=== PATIENT | male | born 1990 | race African-American/Black ===

== ENCOUNTER 2020-01-29 09:17 | Inpatient (IN) | payer MEDICAID, OTHER ==
[2020-01-28 20:32] VITALS: BP 129/69
[~2020-01-29] VITALS: Ht 177.8 cm; Wt 54.7 kg
[2020-01-29 10:56] LABS: Basophils # (auto) 0 10 ^3/uL (0-0.2); Basophils % (auto) 0.5 % (0.0-2.0); Eosinophils # (auto) 0 10 ^3/uL (0-0.8); Eosinophils % (auto) 0.1 % (0.0-7.0); Hematocrit 41.3 % (41.0-53.0); Hemoglobin 13.6 g/dL (13.5-17.5); Lymphocytes # (auto) 0.7 10 ^3/uL (0.4-5.4); Lymphocytes % (auto) 8.2 % (10.0-50.0); Mean Corpuscular Hemoglobin 32.5 pg (28.0-32.0); Mean Corpuscular Volume 98.5 fL (80.0-100.0); Monocytes # (auto) 0.8 10 ^3/uL (0-1.3); Monocytes % (auto) 8.9 % (0.0-12.0); Neutrophils # (auto) 7.2 10 ^3/uL (1.6-8.6); Neutrophils % (auto) 82.3 % (37.0-80.0); Nucleated Red Blood Cells % 0.1 %; Platelet Count (auto) 253 10^3/uL (140-450); Red Blood Cells 4.19 10^6/uL (4.5-5.90); Red Cell Distribution Width 14.1 % (11.8-14.3); White Blood Cell 8.7 10^3/uL (4.4-10.8)
[2020-01-29 11:14] LABS: Albumin 4.2 g/dL (3.4-5.0); Anion Gap 18 (5-15); Blood Urea Nitrogen 16 mg/dL (7-18); Calcium 10.3 mg/dL (8.5-10.1); Carbon Dioxide 18 mmol/L (21-32); Chloride 95 mmol/L (98-107); Glucose 105 mg/dL (74-106); Potassium 3.5 mmol/L (3.5-5.1); Sodium 131 mmol/L (136-145)
[2020-01-29 11:14] LABS: Amphetamine Screen, Urine POSITIVE (NEGATIVE); Barbiturate Scree,Urine NEGATIVE (NEGATIVE); Benzodiazephine Screen, Urine NEGATIVE (NEGATIVE); Cannabinoid Screen, Urine NEGATIVE (NEGATIVE); Cocaine Screen, Urine NEGATIVE (NEGATIVE); Opiate Scree,Urine NEGATIVE (NEGATIVE); Phencyclidine Screen, Urine POSITIVE (NEGATIVE)
[2020-01-29 11:15] LABS: Urine Bacteria NONE SEEN /hpf (None Seen); Urine Blood TRACE /uL (Negative); Urine Specific Gravity 1.025 (1.001-1.035); Urine WBC 2 /hpf (0 - 3)
[2020-01-29 11:21] LABS: Alanine Aminotransferase 36 U/L (16-61); Alkaline Phosphatase 126 U/L (45-117); Aspartate Aminotransferase 71 U/L (15-37); Bilirubin, Total 0.8 mg/dL (0.2-1.0); GFR African American 132 mL/min; GFR Non-African American 109 mL/min; Total Protein 9.1 g/dL (6.4-8.2)
[2020-01-29 11:29] LABS: INR 0.98 (0.9-1.15); Partial Thromboplastin Time 26.5 sec (23.0-31.2)
[2020-01-29] MEDS ORDERED: LORazepam 2MG/ML-1ML VIAL IM ONE ×2 (11:45→15:30)
[2020-01-29] MEDS ORDERED: ONDANSETRON ODT 4 MG TAB PO ONE (12:00)
[2020-01-29 12:29] LABS: Salicylate 3.3 mg/dL (2.8-20.0)
[2020-01-29 12:31] LABS: Acetaminophen < 2.0 ug/mL (10-30)
[2020-01-29] MEDS ORDERED: FOLIC ACID 1 MG, MULTIPLE VITAMIN 10 ML, MAGNESIUM SULF SDV 50% 8 MEQ, THIAMINE INJ 100... INJ STA ×5 (14:44)
[2020-01-29] MEDS ORDERED: THIAMINE HCL 100 MG TAB PO ONE (14:45)
[2020-01-29] MEDS ORDERED: SODIUM CHLORIDE 0.9% 1,000 ML IVB ONE (14:45)
[2020-01-29] MEDS ORDERED: HALOPERIDOL LACTATE 5 MG/ML INJ VIAL ONE (15:24)
[2020-01-29] MEDS ORDERED: LORazepam 2MG/ML-1ML VIAL ONE (15:25)
[2020-01-29] MEDS ORDERED: diphenhdrAMINE HCL 50 MG/1 ML VL ONE (15:27)
[2020-01-29] MEDS ORDERED: HALOPERIDOL LACTATE 5 MG/ML INJ VIAL IM ONE (15:30)
[2020-01-29] MEDS ORDERED: diphenhdrAMINE HCL 50 MG/1 ML VL IM ONE (15:30)
[2020-01-29] MEDS ORDERED: HALOPERIDOL LACTATE 5 MG/ML INJ VIAL IM PRN (16:30)
[2020-01-29] MEDS ORDERED: SODIUM CHLORIDE 0.9% 1,000 ML IV ONE (16:30)
[2020-01-29] MEDS ORDERED: LORazepam 2MG/ML-1ML VIAL IV PRN (16:30)
[2020-01-30 05:03] VITALS: BP 125/74
[2020-01-30 08:29] LABS: Basophils # (auto) 0 10 ^3/uL (0-0.2); Basophils % (auto) 0.7 % (0.0-2.0); Eosinophils # (auto) 0 10 ^3/uL (0-0.8); Eosinophils % (auto) 0.5 % (0.0-7.0); Hematocrit 38.1 % (41.0-53.0); Lymphocytes # (auto) 0.9 10 ^3/uL (0.4-5.4); Lymphocytes % (auto) 22.5 % (10.0-50.0); Mean Corpuscular Hemoglobin 33.4 pg (28.0-32.0); Mean Corpuscular Hgb Conc. 34.1 g/dL (32.0-36.0); Monocytes # (auto) 0.6 10 ^3/uL (0-1.3); Neutrophils # (auto) 2.6 10 ^3/uL (1.6-8.6); Neutrophils % (auto) 62.3 % (37.0-80.0); Nucleated Red Blood Cells % 0.2 %; Platelet Count (auto) 198 10^3/uL (140-450); Red Blood Cells 3.89 10^6/uL (4.5-5.90); Red Cell Distribution Width 14.6 % (11.8-14.3); White Blood Cell 4.2 10^3/uL (4.4-10.8)
[2020-01-30 08:59] LABS: BUN/Creatinine Ratio 16.2; Calcium 9.1 mg/dL (8.5-10.1); Potassium 3.4 mmol/L (3.5-5.1)
[2020-01-30 09:00] VITALS: BP 125/74
[2020-01-30] MEDS: PANTOPRAZOLE 40 MG/10 ML VIAL INJ IV SCH (09:57)
[2020-01-30] MEDS ORDERED: POTASSIUM CHL 20 Meq TABLET PO ONE (10:00)
[2020-01-30] MEDS: FOLIC ACID 1 MG, MULTIPLE VITAMIN 10 ML, MAGNESIUM SULF SDV 50% 8 MEQ, THIAMINE INJ 100... INJ SCH ×5 (13:08)
[2020-01-30 22:00] VITALS: BP 126/72
[2020-01-30] MEDS ORDERED: HYDROcodone-ACET 5/325MG TAB PO ONE (22:30)
[2020-01-31 05:04] VITALS: BP 119/60
[2020-01-31 10:00] LABS: Albumin 3.1 g/dL (3.4-5.0); Potassium 3.8 mmol/L (3.5-5.1)
[2020-01-31 10:01] LABS: BUN/Creatinine Ratio 22.1; Bilirubin, Total 0.3 mg/dL (0.2-1.0); Total Protein 6.6 g/dL (6.4-8.2)
[2020-01-31] MEDS: PANTOPRAZOLE 40 MG/10 ML VIAL INJ IV SCH (10:40)
[2020-01-31] MEDS: FOLIC ACID 1 MG, MULTIPLE VITAMIN 10 ML, MAGNESIUM SULF SDV 50% 8 MEQ, THIAMINE INJ 100... INJ SCH ×5 (13:47)
[2020-01-31 17:00] VITALS: BP 143/86
[2020-01-31 22:00] VITALS: BP 128/72
[2020-02-01 05:00] VITALS: BP 121/70
[2020-02-01 09:00] VITALS: BP 124/73
[2020-02-01] MEDS: PANTOPRAZOLE 40 MG/10 ML VIAL INJ IV SCH (10:03)
[2020-02-01] MEDS: FOLIC ACID 1 MG, MULTIPLE VITAMIN 10 ML, MAGNESIUM SULF SDV 50% 8 MEQ, THIAMINE INJ 100... INJ SCH ×5 (12:00)
[2020-02-01 12:51] VITALS: BP 115/64
== END 2020-02-01 14:00 | disposition left against medical advice (07) | DRG 812 ==
LOC: ER 09:17 → EDBD 09:17 → TELE 09:18 → OBSVTOIN 09:18 → TELE 20:07 → TELE-WESTW 20:14 → TELE 01-30 13:34 → TELE-WESTW 01-30 13:35
PROVIDERS: ADMIT Nurse Practitioner Acute Care; ATTEND Internal Medicine
DX: T50.991A Poisoning by other drugs, medicaments and biological substances, accidental (unintentional), initial encounter (principal); G92 Toxic encephalopathy; R45.851 Suicidal ideations; E87.1 Hypo-osmolality and hyponatremia; E87.2 Acidosis; F41.9 Anxiety disorder, unspecified; Z53.29 Procedure and treatment not carried out because of patient's decision for other reasons; F17.210 Nicotine dependence, cigarettes, uncomplicated; F15.129 Other stimulant abuse with intoxication, unspecified; F31.9 Bipolar disorder, unspecified; F20.9 Schizophrenia, unspecified; Z82.49 Family history of ischemic heart disease and other diseases of the circulatory system; Y92.89 Other specified places as the place of occurrence of the external cause; Z79.899 Other long term (current) drug therapy; F29 Unspecified psychosis not due to a substance or known physiological condition; F39 Unspecified mood [affective] disorder; F10.231 Alcohol dependence with withdrawal delirium
CPT/HCPCS: 36415; 70450; 71045; 80048; 80053; 80307; 80329; 81001; 83735; 84443; 84484; 85025; 85379; 85610; 85730; 96372; C9113; G0378; Q0162

== ENCOUNTER 2021-11-13 20:22 | Emergency (ER) | payer MEDICAID ==
[~2021-11-13] VITALS: Ht 172.7 cm; Wt 54.5 kg
[2021-11-13 23:18] LABS: Basophils # (auto) 0 10 ^3/uL (0-0.2); Basophils % (auto) 0.3 % (0.0-2.0); Eosinophils # (auto) 0 10 ^3/uL (0-0.8); Eosinophils % (auto) 0.1 % (0.0-7.0); Hematocrit 39.2 % (41.0-53.0); Hemoglobin 12.8 g/dL (13.5-17.5); Lymphocytes # (auto) 1.3 10 ^3/uL (0.4-5.4); Lymphocytes % (auto) 21.3 % (10.0-50.0); Mean Corpuscular Hemoglobin 30.7 pg (28.0-32.0); Mean Corpuscular Hgb Conc. 32.7 g/dL (32.0-36.0); Mean Corpuscular Volume 93.8 fL (80.0-100.0); Monocytes # (auto) 0.7 10 ^3/uL (0-1.3); Monocytes % (auto) 11.4 % (0.0-12.0); Neutrophils % (auto) 66.9 % (37.0-80.0); Nucleated Red Blood Cells % 0.2 %; Red Blood Cells 4.18 10^6/uL (4.5-5.90); Red Cell Distribution Width 13.8 % (11.8-14.3); White Blood Cell 6.1 10^3/uL (4.4-10.8)
[2021-11-13 23:37] LABS: Albumin 3.7 g/dL (3.4-5.0); Calcium 8.7 mg/dL (8.5-10.1); Potassium 3.7 mmol/L (3.5-5.1)
[2021-11-13 23:40] LABS: Total Protein 8.9 g/dL (6.4-8.2)
[2021-11-14] MEDS ORDERED: OXYCODONE W/ ACETAMINOPHEN 5/325MG TABLET PO ONE (02:45)
[2021-11-14 03:40] VITALS: BP 130/84
== END 2021-11-14 03:47 | disposition home or self-care (01) ==
LOC: ER 20:22 → EDBD 20:22 → ER 11-14 03:47
DX: R07.9 Chest pain, unspecified (principal); F17.210 Nicotine dependence, cigarettes, uncomplicated
CPT/HCPCS: 36415; 71045; 80053; 84484; 85025; 93005

== ENCOUNTER 2022-02-01 22:49 | Emergency (ER) | payer MEDICAID ==
[~2022-02-01] VITALS: Ht 167.6 cm; Wt 55.0 kg
[2022-02-02 00:53] LABS: Basophils # (auto) 0.1 10 ^3/uL (0-0.2); Basophils % (auto) 1.5 % (0.0-2.0); Eosinophils # (auto) 0.1 10 ^3/uL (0-0.8); Eosinophils % (auto) 1.3 % (0.0-7.0); Hematocrit 36.7 % (41.0-53.0); Hemoglobin 12.3 g/dL (13.5-17.5); Lymphocytes # (auto) 1.3 10 ^3/uL (0.4-5.4); Lymphocytes % (auto) 22.9 % (10.0-50.0); Mean Corpuscular Hemoglobin 31.8 pg (28.0-32.0); Mean Corpuscular Hgb Conc. 33.6 g/dL (32.0-36.0); Mean Corpuscular Volume 94.5 fL (80.0-100.0); Monocytes # (auto) 0.6 10 ^3/uL (0-1.3); Monocytes % (auto) 10.1 % (0.0-12.0); Neutrophils # (auto) 3.5 10 ^3/uL (1.6-8.6); Neutrophils % (auto) 64.2 % (37.0-80.0); Nucleated Red Blood Cells % 0.1 %; Red Blood Cells 3.89 10^6/uL (4.5-5.90); Red Cell Distribution Width 13.6 % (11.8-14.3); White Blood Cell 5.5 10^3/uL (4.4-10.8)
[2022-02-02 01:12] LABS: Albumin 3.6 g/dL (3.4-5.0); Anion Gap 9 (5-15); BUN/Creatinine Ratio 7.1; Blood Alcohol < 3.0 mg/dL (0-5); Blood Urea Nitrogen 7 mg/dL (7-18); Calcium 8.7 mg/dL (8.5-10.1); Carbon Dioxide 26 mmol/L (21-32); Chloride 103 mmol/L (98-107); GFR African American 115 mL/min; GFR Non-African American 95 mL/min; Glucose 147 mg/dL (74-106); Potassium 3.3 mmol/L (3.5-5.1); Sodium 138 mmol/L (136-145)
[2022-02-02 01:15] LABS: Alanine Aminotransferase 52 U/L (16-61); Alkaline Phosphatase 94 U/L (45-117); Aspartate Aminotransferase 104 U/L (15-37); Bilirubin, Total 0.3 mg/dL (0.2-1.0); Total Protein 8.2 g/dL (6.4-8.2)
[2022-02-02 01:16] LABS: Salicylate < 1.7 mg/dL (2.8-20.0)
[2022-02-02 01:26] LABS: Acetaminophen < 2.0 ug/mL (10-30)
[2022-02-02] MEDS ORDERED: LORazepam 2MG/ML-1ML VIAL IM ONE (02:45)
[2022-02-02 10:15] LABS: Urine Bacteria NONE SEEN /hpf (None Seen); Urine Blood Negative /uL (Negative); Urine Mucus FEW (None Seen); Urine Specific Gravity 1.025 (1.001-1.035); Urine WBC 11 /hpf (0 - 3)
[2022-02-02 10:29] LABS: Amphetamine Screen, Urine POSITIVE (NEGATIVE); Barbiturate Scree,Urine NEGATIVE (NEGATIVE); Benzodiazephine Screen, Urine NEGATIVE (NEGATIVE); Cannabinoid Screen, Urine NEGATIVE (NEGATIVE); Cocaine Screen, Urine NEGATIVE (NEGATIVE); Opiate Scree,Urine NEGATIVE (NEGATIVE); Phencyclidine Screen, Urine POSITIVE (NEGATIVE)
[2022-02-02] MEDS ORDERED: KETOROLAC TROMETH 60MG/2ML VIAL IM ONE (20:45)
[2022-02-02] MEDS: QUEtiapine FUMARATE 100 MG TAB PO SCH (22:20)
[2022-02-03] MEDS ORDERED: KETOROLAC TROMETH 60MG/2ML VIAL IM ONE (03:30)
[2022-02-03] MEDS ORDERED: ACETAMINOPHEN 500 MG TAB PO ONE ×2 (08:30→20:00)
[2022-02-03] MEDS: QUEtiapine FUMARATE 100 MG TAB PO SCH ×2 (10:25→22:35)
[2022-02-04] MEDS: QUEtiapine FUMARATE 100 MG TAB PO SCH (10:16)
[2022-02-04 10:38] VITALS: BP 155/103
[2022-02-04] MEDS ORDERED: QUET100T38 PO (12:05)
== END 2022-02-04 12:51 | disposition home or self-care (01) ==
LOC: EDBD 22:49 → ER 23:03
DX: R45.851 Suicidal ideations (principal); F31.9 Bipolar disorder, unspecified; F20.9 Schizophrenia, unspecified; F17.210 Nicotine dependence, cigarettes, uncomplicated; F12.10 Cannabis abuse, uncomplicated; F15.10 Other stimulant abuse, uncomplicated
CPT/HCPCS: 36415; 80053; 80307; 80320; 80329; 81001; 85025; 96372; 99285; J1885; J2060

== ENCOUNTER 2022-10-09 19:33 | Inpatient (IN) | payer MEDICAID ==
[~2022-10-09] VITALS: Ht 172.7 cm; Wt 70.0 kg
[~2022-10-09 19:33] MED LIST: QUET100T38 PO
[2022-10-09] MEDS ORDERED: LORazepam 2MG/ML-1ML VIAL IV ONE (21:30)
[2022-10-09 21:48] LABS: Basophils # (auto) 0.1 10 ^3/uL (0-0.2); Basophils % (auto) 1.4 % (0.0-2.0); Eosinophils # (auto) 0 10 ^3/uL (0-0.8); Hematocrit 37.1 % (41.0-53.0); Hemoglobin 12.1 g/dL (13.5-17.5); Lymphocytes # (auto) 1.5 10 ^3/uL (0.4-5.4); Lymphocytes % (auto) 26.1 % (10.0-50.0); Mean Corpuscular Hgb Conc. 32.6 g/dL (32.0-36.0); Mean Corpuscular Volume 95.3 fL (80.0-100.0); Monocytes # (auto) 0.2 10 ^3/uL (0-1.3); Monocytes % (auto) 3.6 % (0.0-12.0); Neutrophils # (auto) 4.1 10 ^3/uL (1.6-8.6); Neutrophils % (auto) 68.9 % (37.0-80.0); Nucleated Red Blood Cells % 0.2 %; Red Blood Cells 3.89 10^6/uL (4.5-5.90); Red Cell Distribution Width 15.5 % (11.8-14.3); White Blood Cell 5.9 10^3/uL (4.4-10.8)
[2022-10-09 22:10] LABS: Calcium 9.1 mg/dL (8.5-10.1); Potassium 3.9 mmol/L (3.5-5.1)
[2022-10-09 22:16] LABS: Albumin 4.1 g/dL (3.4-5.0); Bilirubin, Total 0.4 mg/dL (0.2-1.0); Total Protein 9.3 g/dL (6.4-8.2)
[2022-10-10] MEDS ORDERED: KETOROLAC TROMETH 30 MG/ML 1ML VIAL IV ONE (00:45)
[2022-10-10] MEDS ORDERED: FOLIC ACID 1 MG, MULTIPLE VITAMIN 10 ML, MAGNESIUM SULF SDV 50% 8 MEQ, THIAMINE INJ 100... INJ ONE ×5 (01:00)
[2022-10-10] MEDS ORDERED: THIAMINE 100mg/ml INJ (200mg/2ml VIAL) ONE (01:11)
[2022-10-10] MEDS ORDERED: THIAMINE 100mg/ml INJ (200mg/2ml VIAL) IV ONE (01:30)
[2022-10-10] MEDS ORDERED: SODIUM CHLORIDE 0.9% 1,000 ML IV ONE ×2 (01:30→03:00)
[2022-10-10] MEDS ORDERED: ONDANSETRON HCL 4 MG/2 ML VIAL IV ONE (02:15)
[2022-10-10] MEDS ORDERED: MORPHINE SULFATE 4 MG/ML SYR/VIAL IV ONE (02:15)
[2022-10-10 02:23] LABS: Barbiturate Scree,Urine NEGATIVE (NEGATIVE); Benzodiazephine Screen, Urine NEGATIVE (NEGATIVE); Cannabinoid Screen, Urine NEGATIVE (NEGATIVE); Cocaine Screen, Urine NEGATIVE (NEGATIVE); Opiate Scree,Urine NEGATIVE (NEGATIVE); Phencyclidine Screen, Urine POSITIVE (NEGATIVE)
[2022-10-10 02:32] LABS: Amphetamine Screen, Urine NEGATIVE (NEGATIVE)
[2022-10-10 02:37] LABS: Urine Bacteria FEW /hpf (None Seen); Urine Blood Negative /uL (Negative); Urine Hyaline Cast FEW /lpf (0 - 2); Urine Mucus FEW (None Seen); Urine Specific Gravity 1.023 (1.001-1.035); Urine WBC 1 /hpf (0 - 3)
[2022-10-10] MEDS ORDERED: LORazepam 2MG/ML-1ML VIAL IV ONE (02:45)
[2022-10-10] MEDS ORDERED: diazePAM 5 MG TAB PO ONE (03:15)
[2022-10-10] MEDS ORDERED: PANTOPRAZOLE 40 MG/10 ML VIAL INJ IV ONE (03:15)
[2022-10-10] MEDS ORDERED: chlordiazePOXIDE HCL 25 MG CAP PO ONE (03:15)
[2022-10-10] MEDS ORDERED: HYDROmorphone HCL 2 MG/ML VL/or syr IV ONE ×2 (04:15→09:15)
[2022-10-10] MEDS ORDERED: FOLIC ACID 1 MG, MULTIPLE VITAMIN 10 ML, MAGNESIUM SULF SDV 50% 8 MEQ, THIAMINE INJ 100... INJ SCH ×5 (12:00)
[2022-10-10] MEDS ORDERED: HYDROcodone-ACET 10/325MG TAB PO ONE (14:15)
[2022-10-10] MEDS ORDERED: DOCUSATE SOD 100 MG CAP PO PRN (16:00)
[2022-10-10] MEDS ORDERED: NITROGLYCERIN 0.4 MG SL TAB SL PRN (16:00)
[2022-10-10] MEDS ORDERED: ACETAMINOPHEN 325 MG TAB PO PRN (16:00)
[2022-10-10] MEDS ORDERED: ALPRAZolam 0.5 MG TAB PO PRN (16:00)
[2022-10-10] MEDS: SODIUM CHLORIDE 0.9% 1,000 ML IV SCH (16:14)
[2022-10-10 16:15] LABS: Amphetamine Screen, Urine NEGATIVE (NEGATIVE); Barbiturate Scree,Urine NEGATIVE (NEGATIVE); Benzodiazephine Screen, Urine NEGATIVE (NEGATIVE); Cocaine Screen, Urine NEGATIVE (NEGATIVE)
[2022-10-10] MEDS: ENOXAPARIN SOD 40 MG/0.4 ML SYRINGE SC SCH (16:17)
[2022-10-10] MEDS: FOLIC ACID 1 MG TAB PO SCH (16:17)
[2022-10-10] MEDS: GABAPENTIN 300 MG CAP PO SCH ×2 (16:21→21:32)
[2022-10-10 16:23] LABS: Basophils # (auto) 0 10 ^3/uL (0-0.2); Basophils % (auto) 0.6 % (0.0-2.0); Eosinophils # (auto) 0.2 10 ^3/uL (0-0.8); Eosinophils % (auto) 2.3 % (0.0-7.0); Hematocrit 29.5 % (41.0-53.0); Hemoglobin 9.7 g/dL (13.5-17.5); Lymphocytes # (auto) 1.5 10 ^3/uL (0.4-5.4); Lymphocytes % (auto) 19.5 % (10.0-50.0); Mean Corpuscular Hemoglobin 30.8 pg (28.0-32.0); Mean Corpuscular Hgb Conc. 32.8 g/dL (32.0-36.0); Mean Corpuscular Volume 94.1 fL (80.0-100.0); Monocytes # (auto) 0.4 10 ^3/uL (0-1.3); Monocytes % (auto) 5.7 % (0.0-12.0); Neutrophils # (auto) 5.4 10 ^3/uL (1.6-8.6); Neutrophils % (auto) 71.9 % (37.0-80.0); Nucleated Red Blood Cells % 0.2 %; Red Blood Cells 3.13 10^6/uL (4.5-5.90); Red Cell Distribution Width 15.8 % (11.8-14.3); White Blood Cell 7.5 10^3/uL (4.4-10.8)
[2022-10-10 16:24] LABS: Cannabinoid Screen, Urine NEGATIVE (NEGATIVE); Opiate Scree,Urine POSITIVE (NEGATIVE); Phencyclidine Screen, Urine POSITIVE (NEGATIVE)
[2022-10-10] MEDS: HYDROcodone-ACET 5/325MG TAB PO PRN ×2 (19:10→23:16)
[2022-10-10] MEDS: ONDANSETRON HCL 4 MG/2 ML VIAL IV PRN (23:54)
[2022-10-11] MEDS: SODIUM CHLORIDE 0.9% 1,000 ML IV SCH ×3 (00:20→17:00)
[2022-10-11] MEDS: HYDROcodone-ACET 5/325MG TAB PO PRN (03:50)
[2022-10-11] MEDS: ONDANSETRON HCL 4 MG/2 ML VIAL IV PRN (04:55)
[2022-10-11] MEDS: MORPHINE SULFATE INJ 2 MG/ml SYRG IV PRN ×2 (04:56→11:37)
[2022-10-11 05:12] LABS: Potassium 3.8 mmol/L (3.5-5.1)
[2022-10-11 05:20] LABS: Albumin 3.1 g/dL (3.4-5.0); BUN/Creatinine Ratio 10.8 (10.0-20.0); Bilirubin, Total 0.5 mg/dL (0.2-1.0); Calcium 8.2 mg/dL (8.5-10.1)
[2022-10-11] MEDS: GABAPENTIN 300 MG CAP PO SCH ×2 (06:24→14:37)
[2022-10-11] MEDS: FOLIC ACID 1 MG TAB PO SCH (10:00)
[2022-10-11] MEDS: ENOXAPARIN SOD 40 MG/0.4 ML SYRINGE SC SCH (10:00)
[2022-10-11 15:36] VITALS: BP 122/78
== END 2022-10-11 17:38 | disposition home or self-care (01) | DRG 775 ==
LOC: ER 19:33 → EDBD 19:33 → TELE 10-10 15:57
PROVIDERS: ADMIT Nurse Practitioner; ATTEND Nurse Practitioner
DX: F10.10 Alcohol abuse, uncomplicated (principal); E44.1 Mild protein-calorie malnutrition; F41.9 Anxiety disorder, unspecified; F16.10 Hallucinogen abuse, uncomplicated; F17.210 Nicotine dependence, cigarettes, uncomplicated; F20.9 Schizophrenia, unspecified; D64.9 Anemia, unspecified; F32.A Depression, unspecified; Z68.23 Body mass index [BMI] 23.0-23.9, adult; Z82.49 Family history of ischemic heart disease and other diseases of the circulatory system
CPT/HCPCS: 36415; 70450; 71250; 72125; 74176; 80053; 80307; 80320; 81001; 83880; 84484; 85025; C9113; G0378; J1885; J2405